=== PATIENT | female | born 1980 | race Caucasian/White ===

== ENCOUNTER 2017-04-26 05:50 | Outpatient (CLI) | payer OTHER ==
[~2017-04-26] VITALS: Ht 152.4 cm; Wt 69.9 kg
[2017-04-28] MEDS ORDERED: DOCU-143 PO (13:46)
[2017-04-28] MEDS ORDERED: HYDR-3812 PO (13:46)
== END 2017-04-26 14:33 ==
LOC: PREOP 05:50
PROVIDERS: ATTEND Surgery
DX: Z01.818 Encounter for other preprocedural examination (principal); K64.9 Unspecified hemorrhoids

== ENCOUNTER 2017-04-28 10:56 | Day surgery (SDC) | payer OTHER ==
[~2017-04-28] VITALS: Ht 152.4 cm; Wt 69.9 kg
--- OUTSIDE RECORDS SUMMARY | 2017-04-28 11:00 | XMS REPORT ---
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
--- OUTSIDE RECORDS SUMMARY | 2017-04-28 11:00 | XMS REPORT ---
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
--- OUTSIDE RECORDS SUMMARY | 2017-04-28 11:00 | XMS REPORT | Continuity of Care Document ---
Author Author [facility] Address Unknown Phone Unavailable Allergies Medications Problems Date Dx Coded Attending Type Code Diagnosis Diagnosed By 03/21/2012 PETER RUEDA DDS 704.8 FOLLICULITIS Procedures Results Encounters ACCT No. Visit Date/Time Discharge Status Pt. Type Provider Facility Loc./Unit Complaint [id number] 01/25/2013 08:59:00 01/25/2013 23: 59:59 CLS Outpatient PETER RUEDA DDS
[2017-04-28] MEDS ORDERED: MIDAZOLAM 2 MG/2 ML (VERSED) VIAL ONE ×2 (11:27→12:47)
[2017-04-28] MEDS: LACTATED RINGERS 1,000 ML IV PRN ×2 (11:30→13:40)
[2017-04-28] MEDS ORDERED: MIDAZOLAM 2 MG/2 ML (VERSED) VIAL IV ONE (11:30)
[2017-04-28 11:43] VITALS: BP 114/79
[2017-04-28] MEDS ORDERED: LIDOCAINE 1% INJ 20 ML (XYLOCAINE) VIAL ONE (12:40)
[2017-04-28] MEDS ORDERED: BUPIVACAINE 0.5% 30 ML (SENSORCAINE) VIAL ONE (12:40)
[2017-04-28] MEDS ORDERED: SEVOFLURANE (ULTANE) 15 ML INHAL SOLN ONE ×3 (12:46→13:33)
[2017-04-28] MEDS ORDERED: LIDOCAINE PF 2% 5 ML (XYLOCAINE) VIAL ONE (12:46)
[2017-04-28] MEDS ORDERED: ONDANSETRON 4 MG/2 ML (SDV) Z0FRAN ONE (12:46)
[2017-04-28] MEDS ORDERED: proPOfol 200 MG/20 ML (DIPRIVAN) VIAL IV ONE (12:46)
[2017-04-28] MEDS ORDERED: fentaNYL INJECTION 100 MCG/2 ML AMP ONE ×2 (12:47→13:50)
[2017-04-28] MEDS ORDERED: LACTATED RINGERS 1,000 ML IV ONE (12:47)
--- NOTE | 2017-04-28 13:05 | Progress Note-Pre Operative ---
Pre-Operative Progress Note H&P Reviewed The H&P was reviewed, patient examined and no changes noted. Date Seen by Provider: Apr 28, 2017 Time Seen by Provider: 13:04 Date H&P Reviewed: Apr 28, 2017 Time H&P Reviewed: 13:04 Pre-Operative Diagnosis: anal/rectal pain hemorrhoid SALVATORE RESENDEZ DO Apr 28, 2017 13:05
[2017-04-28] MEDS ORDERED: DEXAMETHASONE 10 MG/ML (DECADRON) 1 ML VIAL ONE (13:20)
[2017-04-28] MEDS ORDERED: ceFAZolin 1,000 MG (ANCEF) VIAL ONE (13:20)
--- NOTE | 2017-04-28 13:44 | Progress Note-Post Operative ---
Post-Operative Progess Note Surgeon (s)/Traffic Signal Technician (s) Surgeon SALVATORE RESENDEZ DO Traffic Signal Technician: na Pre-Operative Diagnosis anal/rectal pain hemorrhoid Post-Operative Diagnosis left lateral fibrosed hemorrhoid Procedure & Operative Findings Date of Procedure 04/28/17 Procedure Performed/Findings exam under anesthesia, left lateral hemorrhoidectomy Anesthesia Type gen Estimated Blood Loss Estimated blood loss (mL): min Specimens/Packing Specimens Removed left lateral hemorrhoid with fibrosis SALVATORE RESENDEZ DO Apr 28, 2017 13:44
[2017-04-28] MEDS ORDERED: HYDR-3812 PO (13:46)
[2017-04-28] MEDS ORDERED: DOCU-143 PO (13:46)
--- NOTE | 2017-04-28 13:48 | Discharge Inst-Simple/Standard ---
Discharge Inst-Standard Discharge Medications New, Converted or Re-Newed RX: RX on Chart Patient Instructions/Follow Up Plan of Care/Instructions/FU: 2 weeks Kang Keep the area clean and dry. After bowel movements sitz bath to clean the area. Activity as Tolerated: No Discharge Diet: Regular Diet Other Inst to Patient Follow up Appt: Make appointment for 2 week. Instructions: No lifting greater than 10 pounds. No strenuous activity. May shower in 24 hours, no tub bath or soaking. Use incentive spirometer at home as directed. No Smoking Skin/Wound Care: Keep area clean and dry, sitz bath after bowel movement to keep clean and dry. Symptoms to Report: Appetite Changes, Extremity Discoloration, Numbness/Tingling, Swelling Increased , Bleeding Excessive, Eyesight Changes, Pain Increased, Urine Color Change, Constipation(Persistent), Fever over 101 degree F, Pain/Pressure in chest, Urinating Difficulty, Cough Up/Vomit Blood, Heart Beat Irreg/Pounding, Pain/ Pressure in jaw, Vaginal Bleeding Increase, Cramps in feet or legs, Lightheadedness, Pain/Pressure in shoulder, Diarrhea(Persistent), Memory Changes Suddenly, Questions/Concerns, Weight gain consecutive days, Dizziness/ Fainting, Nausea/Vomiting, Shortness of Breath, Weight gain over 2 pounds If questions or concerns contact your physician Or seek help at emergency department. SALVATORE RESENDEZ DO Apr 28, 2017 13:48
[2017-04-28] MEDS: fentaNYL INJECTION 100 MCG/2 ML AMP IVP PRN ×3 (14:00→14:12)
[2017-04-28] MEDS ORDERED: ONDANSETRON 4 MG/2 ML (SDV) Z0FRAN IVP PRN (14:15)
[2017-04-28] MEDS ORDERED: HYDROmorphone (DILAUDID) 2 MG/ML VIAL IVP PRN (14:15)
[2017-04-28 14:45] VITALS: BP 130/77
[2017-04-28 15:15] VITALS: BP 130/77
[2017-04-28 15:45] VITALS: BP 126/70
[2017-04-28 15:50] VITALS: BP 126/70
--- NOTE | 2017-04-29 05:54 | OPERATIVE REPORT ---
DATE OF SERVICE: PREOPERATIVE DIAGNOSIS: Anorectal pain and hemorrhoids. POSTOPERATIVE DIAGNOSIS: Fibrosed hemorrhoid, left lateral position. PROCEDURE: Exam under anesthesia, left lateral hemorrhoidectomy. SURGEON: Salvatore Kapadia DO ANESTHESIA: General. ESTIMATED BLOOD LOSS: Minimal. COMPLICATIONS: None. INDICATIONS: The patient is a 36-year-old female, who has been having anorectal pain. She also has a hemorrhoid. She feels that was bothering her. She was explained risks and benefits of procedure and wished to proceed with procedure. Consent was signed in the chart. DESCRIPTION OF PROCEDURE: The patient was taken to the operating suite. She was placed in the lithotomy position. She was prepped and draped and timeout was performed. Digital rectal exam was performed. There was a slightly large left lateral hemorrhoid present, which appears to be fibrosed and prolapsed. There are no other palpable polyps, masses or any ulcerations visualized. A retractor was placed into the anal canal. The right anterior and right posterior hemorrhoid complexes were noted and appeared normal. The left was visualized, which did have an area that was fibrosed and prolapsed. This was grasped and elevated and a harmonic focus was used to remove this area of the hemorrhoid. Using 3-0 chromic, the mucosal defect was closed and hemostasis was achieved. A piece of Gelfoam wrapped and Vaseline gauze was then placed into the anal canal to provide pressure for packing. The area was then washed and dried and sterile bandage was applied. The patient tolerated the procedure well without any complications. She was taken to recovery room in stable condition. RECOMMENDATIONS: She will follow up in 2 weeks. If she has any problems prior to that, she should be reevaluated at that time. Job ID: [id number] DocumentID: [id number] Dictated Date: 04/28/2017 16:24:50 Information Technology Instructor Date: 04/29/2017 05:53:56 Dictated By: SALVATORE KAPADIA DO [facility]ON[facility] HOSPITALFrancisco
== END 2017-04-28 15:50 | disposition home or self-care (01) ==
LOC: SDC 10:56
PROVIDERS: ATTEND Surgery
DX: K64.2 Third degree hemorrhoids (principal); F17.210 Nicotine dependence, cigarettes, uncomplicated
CPT/HCPCS: 84703; 87081; 88304; 94664